=== PATIENT | female | born 1945 | race Caucasian/White ===

== ENCOUNTER 2018-05-03 16:55 | Observation (INO) | payer MEDICARE, BC ==
[2018-05-03] MEDS ORDERED: Sodium Chloride 0.9% 2.5 ML Syringe FLUSH PRN ×2 (17:19→21:52)
[2018-05-03] MEDS ORDERED: Sodium Chloride 0.9% 10 ML Syringe FLUSH PRN ×2 (17:19→21:52)
[2018-05-03] MEDS ORDERED: Sodium Chloride 0.9% 1,000 ML IV ONE (17:24)
[2018-05-03 17:48] LABS: CHLORIDE,CL 108 mmol/L (98-107); SODIUM,NA 143 mmol/L (136-145)
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
[2018-05-03] MEDS: Nitrofurantoin Monohydrate/Macrocrystalline 100 MG Cap PO SCH (21:50)
[2018-05-03] MEDS: Acetaminophen/oxyCODONE 325-10 MG Tab PO SCH (23:56)
[2018-05-03] MEDS: rOPINIRole 1 MG Tab PO SCH (23:58)
[2018-05-04] MEDS: Nitrofurantoin Monohydrate/Macrocrystalline 100 MG Cap PO SCH (08:21)
[2018-05-04] MEDS: Acetaminophen/oxyCODONE 325-10 MG Tab PO SCH ×3 (08:22→21:00)
--- NOTE | 2018-05-04 09:43 | CT ---
EXAM DATE: 05/03/18 PATIENT'S AGE: 73 Patient: SONA RASMUSSEN Facility: [place], [place] Site . Site : [id number] Study: CT Head wo cont [id number]/17/2018 6:58:20 PM Ordering Physician: Anjelica Quintero Final Report: INDICATION: multiple syncopial episodes COMPARISON: None. TECHNIQUE: Routine noncontrast axial CT images of the head. Sagittal and coronal reformatted series were also generated and reviewed. Total exam DLP 1365 mGy-cm. FINDINGS: There is diffuse atrophic change. There is no evidence of acute intracranial hemorrhage. No abnormal extra-axial fluid collection. The frye/white matter differentiation is preserved throughout. There is no herniation or hydrocephalus. The orbital contents are symmetric. The visualized pneumatized portions of the skull are clear. The skull and scalp are intact. IMPRESSION: 1. No acute intracranial findings. 2. Diffuse atrophy. Dictated by Jamison Velasquez MD @ 05/03/2018 7:11:37 PM Dictated by: Jamison Velasquez MD @ 05/03/2018 19:11:47 (Electronic Signature) Report Signed by Proxy. BELLA
[2018-05-04] MEDS ORDERED: buPROPion 150 MG Tab.ER PO SCH (10:15)
--- NOTE | 2018-05-04 10:18 | US ---
EXAMINATION: Carotid US with frye scale and duplex imaging. HISTORY: Syncope FINDINGS: Ultrasound examination of bilateral cervical carotid arteries was performed using frye scale and dupl ex imaging. Minimal scattered atheromatous changes noted within the carotid arteries. Antegrade analisa w noted within the vertebrals. These are the peak velocities in cm per second (systole), right and left respectively, by a comma: CCA (common carotid artery) - 86, 62 ICA (internal carotid artery) - 58, 97 ECA (External carotid artery) - 75, 108 ICA/CCA systolic ratio Right - 0.7 Left - 1.6 IMPRESSION: Minimal scattered atheromatous changes within the carotid arteries without elevated velocities to sug gest significant stenosis.
[2018-05-04] MEDS: Metoprolol Succinate 25 MG Tab.ER PO SCH (10:27)
[2018-05-04] MEDS: Aspirin 81 MG Tab.Chew PO SCH (10:27)
[2018-05-04] MEDS: Sertraline 100 MG Tab PO SCH (10:28)
[2018-05-04] MEDS ORDERED: Lactated Ringers 1,000 ML IV SCH (10:45)
[2018-05-04] MEDS ORDERED: cefTRIAXone 1 GM in Sodium Chloride 0.9% 50 ML IV SCH (11:00)
[2018-05-04] MEDS: Lactated Ringers 1,000 ML IV SCH (17:28)
[2018-05-04] MEDS ORDERED: Cyanocobalamin (Vitamin B12) 1,000 MCG/ML SDV SUBCUT ONE (17:40)
[2018-05-04] MEDS ORDERED: Enoxaparin 40 MG/0.4 ML Syringe SUBCUT SCH (18:00)
--- NOTE | 2018-05-04 18:01 | PCM.SN ---
- Free Text/Narrative Note: [id number]
--- NOTE | 2018-05-04 18:02 | PCM.PN ---
- General Info Date of Service: 05/04/18 Admission Dx/Problem (Free Text): dizzy spells Subjective Update: Patient feeling better today, no dizzy spells, her creatinine improved to 1.5 - Review of Systems General: Reports: No Symptoms HEENT: Reports: No Symptoms Pulmonary: Reports: No Symptoms Cardiovascular: Reports: No Symptoms Gastrointestinal: Reports: No Symptoms Genitourinary: Reports: No Symptoms Musculoskeletal: Reports: No Symptoms Skin: Reports: No Symptoms Neurological: Reports: No Symptoms Psychiatric: Reports: Anxiety - Patient Data Vitals - Most Recent: Last Vital Signs Temp 98.3 F 05/04/18 15:54 Pulse 54 L 05/04/18 15:54 Resp 18 05/04/18 15:54 BP 171/72 H 05/04/18 15:54 Pulse Ox 97 05/04/18 15:54 Orthostatic Blood Pressure [ 198/91 Standing] Orthostatic Blood Pressure [ 146/70 Sitting] Orthostatic Blood Pressure [ 145/67 Supine] Weight - Most Recent: 198 lb 6.56 oz I&O - Last 24 Hours: Intake & Output 05/04/18 05/04/18 05/04/18 06:59 14:59 22:59 Intake Total 200 50 Output Total 250 Balance -50 50 Lab Results Last 24 Hours: Laboratory Results - last 24 hr 05/03/18 05/04/18 05/04/18 Range/Units 18:40 05:35 05:35 WBC 5.35 (4.0-11.0) K/uL RBC 3.78 L (4.30-5.90) M/uL Hgb 11.6 L (12.0-16.0) g/dL Hct 36.1 (36.0-46.0) % MCV 95.5 (80.0-98.0) fL MCH 30.7 (27.0-32.0) pg MCHC 32.1 (31.0-37.0) g/dL RDW Std Deviation 46.8 (28.0-62.0) fl RDW Coeff of Josefina 13 (11.0-15.0) % Plt Count 150 (150-400) K/uL MPV 9.50 (7.40-12.00) fL Neut % (Auto) 66.5 (48.0-80.0) % Lymph % (Auto) 23.6 (16.0-40.0) % [place] % (Auto) 6.7 (0.0-15.0) % Eos % (Auto) 2.8 (0.0-7.0) % Baso % (Auto) 0.4 (0.0-1.5) % Neut # (Auto) 3.6 (1.4-5.7) K/uL Lymph # (Auto) 1.3 (0.6-2.4) K/uL [place] # (Auto) 0.4 (0.0-0.8) K/uL Eos # (Auto) 0.2 (0.0-0.7) K/uL Baso # (Auto) 0.0 (0.0-0.1) K/uL Nucleated RBC % 0.0 /100WBC Nucleated RBCs # 0 K/uL ESR (0-29) mm/hr Sodium 143 (136-145) mmol/L Potassium 4.4 (3.5-5.1) mmol/L Chloride 110 H (98-107) mmol/L Carbon Dioxide 29.3 (21.0-32.0) mmol/L BUN 27 H (7.0-18.0) mg/dL Creatinine 1.5 H (0.6-1.0) mg/dL Est Cr Clr Drug Dosing 23.28 mL/min Estimated GFR (MDRD) 33.9 ml/min Glucose 103 (74-106) mg/dL Hemoglobin A1c (4.5-6.2) % Calcium 9.0 (8.5-10.1) mg/dL Iron (50-175) ug/dL TIBC (250-450) ug/dL % Saturation (20-55) % Ferritin (8-252) ng/mL Vitamin B12 (193-986) pg/mL TSH 3rd Generation (0.36-3.74) uIU/mL Urine Color YELLOW Urine Appearance CLEAR Urine pH 7.0 (5.0-8.0) Ur Specific [place] 1.010 (1.001-1.035) Urine Protein NEGATIVE (NEGATIVE) mg/dL Urine Glucose (UA) NEGATIVE (NEGATIVE) mg/dL Urine Ketones NEGATIVE (NEGATIVE) mg/dL Urine Occult Blood NEGATIVE (NEGATIVE) Urine Nitrite NEGATIVE (NEGATIVE) Urine Bilirubin NEGATIVE (NEGATIVE) Urine Urobilinogen 1.0 (<2.0) EU/dL Ur Leukocyte Esterase TRACE (NEGATIVE) Urine RBC 0-1 (0-2/HPF) Urine WBC 3-6 (0-5/HPF) Ur Epithelial Cells OCCASIONAL (NONE-FEW) Urine Bacteria 2+ H (NEGATIVE) 05/04/18 05/04/18 05/04/18 Range/Units 11:20 11:20 11:20 WBC (4.0-11.0) K/uL RBC (4.30-5.90) M/uL Hgb (12.0-16.0) g/dL Hct (36.0-46.0) % MCV (80.0-98.0) fL MCH (27.0-32.0) pg MCHC (31.0-37.0) g/dL RDW Std Deviation (28.0-62.0) fl RDW Coeff of Josefina (11.0-15.0) % Plt Count (150-400) K/uL MPV (7.40-12.00) fL Neut % (Auto) (48.0-80.0) % Lymph % (Auto) (16.0-40.0) % [place] % (Auto) (0.0-15.0) % Eos % (Auto) (0.0-7.0) % Baso % (Auto) (0.0-1.5) % Neut # (Auto) (1.4-5.7) K/uL Lymph # (Auto) (0.6-2.4) K/uL [place] # (Auto) (0.0-0.8) K/uL Eos # (Auto) (0.0-0.7) K/uL Baso # (Auto) (0.0-0.1) K/uL Nucleated RBC % /100WBC Nucleated RBCs # K/uL ESR (0-29) mm/hr Sodium (136-145) mmol/L Potassium (3.5-5.1) mmol/L Chloride (98-107) mmol/L Carbon Dioxide (21.0-32.0) mmol/L BUN (7.0-18.0) mg/dL Creatinine (0.6-1.0) mg/dL Est Cr Clr Drug Dosing mL/min Estimated GFR (MDRD) ml/min Glucose (74-106) mg/dL Hemoglobin A1c 6.1 (4.5-6.2) % Calcium (8.5-10.1) mg/dL Iron 78 (50-175) ug/dL TIBC 207 L (250-450) ug/dL % Saturation 37.68 (20-55) % Ferritin 48 (8-252) ng/mL Vitamin B12 377 (193-986) pg/mL TSH 3rd Generation 0.94 (0.36-3.74) uIU/mL Urine Color Urine Appearance Urine pH (5.0-8.0) Ur Specific [place] (1.001-1.035) Urine Protein (NEGATIVE) mg/dL Urine Glucose (UA) (NEGATIVE) mg/dL Urine Ketones (NEGATIVE) mg/dL Urine Occult Blood (NEGATIVE) Urine Nitrite (NEGATIVE) Urine Bilirubin (NEGATIVE) Urine Urobilinogen (<2.0) EU/dL Ur Leukocyte Esterase (NEGATIVE) Urine RBC (0-2/HPF) Urine WBC (0-5/HPF) Ur Epithelial Cells (NONE-FEW) Urine Bacteria (NEGATIVE) 05/04/18 Range/Units 11:20 WBC (4.0-11.0) K/uL RBC (4.30-5.90) M/uL Hgb (12.0-16.0) g/dL Hct (36.0-46.0) % MCV (80.0-98.0) fL MCH (27.0-32.0) pg MCHC (31.0-37.0) g/dL RDW Std Deviation (28.0-62.0) fl RDW Coeff of Josefina (11.0-15.0) % Plt Count (150-400) K/uL MPV (7.40-12.00) fL Neut % (Auto) (48.0-80.0) % Lymph % (Auto) (16.0-40.0) % [place] % (Auto) (0.0-15.0) % Eos % (Auto) (0.0-7.0) % Baso % (Auto) (0.0-1.5) % Neut # (Auto) (1.4-5.7) K/uL Lymph # (Auto) (0.6-2.4) K/uL [place] # (Auto) (0.0-0.8) K/uL Eos # (Auto) (0.0-0.7) K/uL Baso # (Auto) (0.0-0.1) K/uL Nucleated RBC % /100WBC Nucleated RBCs # K/uL ESR 18 (0-29) mm/hr Sodium (136-145) mmol/L Potassium (3.5-5.1) mmol/L Chloride (98-107) mmol/L Carbon Dioxide (21.0-32.0) mmol/L BUN (7.0-18.0) mg/dL Creatinine (0.6-1.0) mg/dL Est Cr Clr Drug Dosing mL/min Estimated GFR (MDRD) ml/min Glucose (74-106) mg/dL Hemoglobin A1c (4.5-6.2) % Calcium (8.5-10.1) mg/dL Iron (50-175) ug/dL TIBC (250-450) ug/dL % Saturation (20-55) % Ferritin (8-252) ng/mL Vitamin B12 (193-986) pg/mL TSH 3rd Generation (0.36-3.74) uIU/mL Urine Color Urine Appearance Urine pH (5.0-8.0) Ur Specific [place] (1.001-1.035) Urine Protein (NEGATIVE) mg/dL Urine Glucose (UA) (NEGATIVE) mg/dL Urine Ketones (NEGATIVE) mg/dL Urine Occult Blood (NEGATIVE) Urine Nitrite (NEGATIVE) Urine Bilirubin (NEGATIVE) Urine Urobilinogen (<2.0) EU/dL Ur Leukocyte Esterase (NEGATIVE) Urine RBC (0-2/HPF) Urine WBC (0-5/HPF) Ur Epithelial Cells (NONE-FEW) Urine Bacteria (NEGATIVE) Med Orders - Current: Current Medications Aspirin (Aspirin) 81 mg PO DAILY [facility] Last Admin: 05/04/18 10:27 Dose: 81 mg Bupropion HCl (Wellbutrin Sr) 150 mg PO DAILY [facility] Enoxaparin Sodium (Lovenox) 40 mg SUBCUT Q24H [facility] Ceftriaxone Sodium 1 gm/ (Sodium Chloride) 50 mls @ 100 mls/hr IV Q24H [facility] Last Admin: 05/04/18 11:34 Dose: 100 mls/hr Lactated Ringer's (Ringers, Lactated) 1,000 mls @ 75 mls/hr IV ASDIRECTED [facility] Last Admin: 05/04/18 17:28 Dose: 75 mls/hr Metoprolol Succinate (Toprol Xl) 25 mg PO DAILY [facility] Last Admin: 05/04/18 10:27 Dose: 25 mg Oxycodone/Acetaminophen (Percocet 325-10 Mg) 1 tab PO BID [facility] Last Admin: 05/04/18 08:22 Dose: 1 tab Ramipril (Altace) 5 mg PO BID [facility] Last Admin: 05/04/18 08:21 Dose: 5 mg Ropinirole HCl (Requip) 4 mg PO BEDTIME [facility] Last Admin: 05/03/18 23:58 Dose: 4 mg Sertraline HCl (Zoloft) 200 mg PO DAILY [facility] Last Admin: 05/04/18 10:28 Dose: 200 mg Sodium Chloride (Saline Flush) 10 ml FLUSH ASDIRECTED PRN PRN Reason: Keep Vein Open Sodium Chloride (Saline Flush) 2.5 ml FLUSH ASDIRECTED PRN PRN Reason: Keep Vein Open Discontinued Medications Bupropion HCl (Wellbutrin Xl) 300 mg PO DAILY [facility] Last Admin: 05/04/18 10:27 Dose: 300 mg Cyanocobalamin (Vitamin B12) 1,000 mcg SUBCUT ONETIME ONE Stop: 05/04/18 17:41 Sodium Chloride (Normal Saline) 1,000 mls @ 999 mls/hr IV STAT ONE Stop: 05/03/18 18:24 Last Admin: 05/03/18 17:27 Dose: 999 mls/hr Lactated Ringer's (Ringers, Lactated) 1,000 mls @ 200 mls/hr IV ASDIRECTED [facility] Last Admin: 05/04/18 11:33 Dose: 200 mls/hr Nitrofurantoin Macrocrystals (Macrobid) 100 mg PO BID [facility] Stop: 05/08/18 09:01 Last Admin: 05/04/18 08:21 Dose: 100 mg - Exam General: Alert, Oriented HEENT: Pupils Equal, Pupils Reactive Neck: Supple, Trachea Midline, No JVD Lungs: Clear to Auscultation, Normal Respiratory Effort Cardiovascular: Regular Rate, Regular Rhythm, No Murmurs GI/Abdominal Exam: Normal Bowel Sounds, Soft, Non-Tender, No Organomegaly Back Exam: Normal Inspection Extremities: Normal Inspection - Problem List & Annotations (1) Near syncope SNOMED Code(s): 390895980 Code(s): R55 - SYNCOPE AND COLLAPSE Status: Acute Current Visit: Yes (2) Depression SNOMED Code(s): 78297556 Code(s): F32.9 - MAJOR DEPRESSIVE DISORDER, SINGLE EPISODE, UNSPECIFIED Status: Acute Current Visit: Yes (3) Acute kidney failure SNOMED Code(s): 99105223 Code(s): N17.9 - ACUTE KIDNEY FAILURE, UNSPECIFIED Status: Acute Current Visit: Yes (4) Hypertension SNOMED Code(s): 06213283 Code(s): I10 - ESSENTIAL (PRIMARY) HYPERTENSION Status: Acute Current Visit: Yes - Problem List Review Problem List Initiated/Reviewed/Updated: Yes - My Orders Last 24 Hours: My Active Orders 05/03/18 20:56 Telemetry Monitoring [Cardiac Monitoring] [RC] . DIRECTED 05/03/18 21:52 Saline Lock Insert [OM.PC] Routine 05/03/18 23:15 Acetaminophen/oxyCODONE [Percocet 325-10 MG] 1 tab PO BID rOPINIRole [Requip] 4 mg PO BEDTIME 05/04/18 00:30 Ramipril [Altace] 5 mg PO BID 05/04/18 08:00 Echo Comp wo Cont [US] Routine 05/04/18 10:15 Aspirin 81 mg PO DAILY Metoprolol Succinate [Toprol XL] 25 mg PO DAILY Sertraline [Zoloft] 200 mg PO DAILY 05/04/18 11:00 cefTRIAXone [Rocephin] 1 gm Sodium Chloride 0.9% [Normal Saline] 50 ml IV Q24H 05/04/18 15:45 Lactated Ringers [Ringers, Lactated] 1,000 ml IV ASDIRECTED 05/04/18 18:00 Enoxaparin [Lovenox] 40 mg SUBCUT Q24H 05/04/18 Breakfast 2 Gram Sodium Diet [DIET] 05/05/18 09:00 buPROPion [Wellbutrin SR] 150 mg PO DAILY - Assessment Assessment:: Plan For near syncope patient did not have any other episodes of lightheadedness today will decrease Bupropion to 150 mg by mouth daily as patient has decreased creatinine cleareance and this medication can give dizzy spells. Will f/up ECHo results. No arrhythmia on cardiac exercise specialist, orthostatic Vs were negative, carotid doppler negative for stenosis Acute Kidney failure /dehydration -continue patient with IV fluids , patient creatinine is currently improving and will follow-up BUN/creatinine tomorrow morning . For depression and anxiety patient will be continued on sertraline 200 mg by mouth daily and bupropion 150 mg by mouth daily For hypertension which is uncontrolled and give patient lisinopril 10 mg by mouth 1 dose as his Hr is bradycardic For DVT prophylaxis with patient lovenox 30 mg subcutaneouson
[2018-05-04] MEDS: rOPINIRole 1 MG Tab PO SCH (20:29)
[2018-05-04] MEDS ORDERED: Non-Formulary Medication 1 Each (Trazodone Hcl 100 MG) PO SCH (21:00)
[2018-05-05] MEDS: Lactated Ringers 1,000 ML IV SCH (05:46)
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
[2018-05-05] MEDS ORDERED: Enoxaparin 30 MG/0.3 ML Syringe SUBCUT SCH (08:45)
[2018-05-05] MEDS ORDERED: buPROPion 150 MG Tab.SR PO SCH (09:00)
[2018-05-05] MEDS: Sertraline 100 MG Tab PO SCH (09:23)
[2018-05-05] MEDS: Aspirin 81 MG Tab.Chew PO SCH (09:23)
[2018-05-05] MEDS: Acetaminophen/oxyCODONE 325-10 MG Tab PO SCH (09:23)
[2018-05-05 09:39] VITALS: BP 162/67
[2018-05-05] MEDS: Metoprolol Succinate 25 MG Tab.ER PO SCH (09:40)
--- NOTE | 2018-05-05 14:22 | ECHO ---
EXAM DATE: 05/03/18 PATIENT'S AGE: 73 The echocardiogram report can be seen in this patient's EMR (Electronic Medical Record) in the Reports section. The report has also been scanned into PACs. BELLA
[2018-05-05] MEDS ORDERED: traZODone 50 MG Tab PO SCH (21:00)
--- NOTE | 2018-05-05 21:35 | PCM.DCSUM1 ---
Discharge Summary - Hospital Course Diagnosis: Stroke: No - Discharge Data Discharge Disposition: Home, Self-Care 01 Condition: Fair - Discharge Diagnosis/Problem(s) (1) Near syncope SNOMED Code(s): 280203390 ICD Code: R55 - SYNCOPE AND COLLAPSE Status: Acute (2) Depression SNOMED Code(s): 35947445 ICD Code: F32.9 - MAJOR DEPRESSIVE DISORDER, SINGLE EPISODE, UNSPECIFIED Status: Acute (3) Acute kidney failure SNOMED Code(s): 71292473 ICD Code: N17.9 - ACUTE KIDNEY FAILURE, UNSPECIFIED Status: Acute (4) Hypertension SNOMED Code(s): 06475052 ICD Code: I10 - ESSENTIAL (PRIMARY) HYPERTENSION Status: Acute (5) Back pain SNOMED Code(s): 841192228 ICD Code: M54.9 - DORSALGIA, UNSPECIFIED Status: Acute (6) UTI (urinary tract infection) SNOMED Code(s): 13672541 ICD Code: N39.0 - URINARY TRACT INFECTION, SITE NOT SPECIFIED Status: Acute (7) Heart murmur SNOMED Code(s): 74066963 ICD Code: R01.1 - CARDIAC MURMUR, UNSPECIFIED Status: Acute (8) Heart murmur, aortic SNOMED Code(s): 875493547 ICD Code: I35.8 - OTHER NONRHEUMATIC AORTIC VALVE DISORDERS Status: Acute - Patient Instructions Diet: Usual Diet as Tolerated Activity: As Tolerated Driving: May Drive Today Showering/Bathing: May Shower - Discharge Plan Prescriptions/Med Rec: buPROPion [Wellbutrin SR] 150 mg PO DAILY 90 Days #90 tab.sr Cephalexin [Keflex] 500 mg PO BID #10 capsule Home Medications: Home Meds Mometasone Furoate [Elocon] 1 applic TOP DAILY 05/13/16 [History] Ramipril [Altace] 5 mg PO BID 05/13/16 [History] Sertraline [Zoloft] 200 mg PO DAILY 05/13/16 [History] Tretinoin/Emollient Base [Tretinoin 0.05% Emollient Crm] 1 applic TOP DAILY [History] oxyCODONE HCl/Acetaminophen [Percocet 10-325 mg Tablet] 1 tab PO BID 05/13/16 [ History] rOPINIRole HCl [Requip] 4 mg PO BEDTIME 05/13/16 [History] Furosemide [Lasix] 20 mg PO DAILY 09/19/16 [History] Minocycline [Minocin] 100 mg PO DAILY cap 09/28/16 [Rx] Aspirin 81 mg PO DAILY 05/03/18 [History] Metoprolol Succinate [Toprol XL] 25 mg PO DAILY 05/03/18 [History] traZODone HCl [Trazodone HCl] 100 mg PO BEDTIME 05/04/18 [History] Cephalexin [Keflex] 500 mg PO BID #10 capsule 05/05/18 [Rx] buPROPion [Wellbutrin SR] 150 mg PO DAILY 90 Days #90 tab.sr 05/05/18 [Rx] Patient Handouts: Cephalexin tablets or capsules, Bupropion sustained-release tablets (Depression/Mood Disorders), Syncope, [id number] Referrals: Michela Juarez MD [Physician] - 05/18/18 3:00 pm Lenny Del Angel MD [Physician] - 05/09/18 3:15 pm - Patient Data Vitals - Most Recent: Last Vital Signs Temp 98.9 F 05/05/18 08:00 Pulse 78 05/05/18 09:40 Resp 16 05/05/18 08:00 BP 162/67 H 05/05/18 09:40 Pulse Ox 98 05/05/18 08:00 Orthostatic Blood Pressure [ 176/101 Standing] Orthostatic Blood Pressure [ 181/69 Sitting] Orthostatic Blood Pressure [ 162/67 Supine] Weight - Most Recent: 198 lb 6.56 oz I&O - Last 24 hours: Intake & Output 05/05/18 05/05/18 05/05/18 06:59 14:59 22:59 Intake Total 1474 656 Output Total 1390 200 Balance 84 456 Lab Results - Last 24 hrs: Laboratory Results - last 24 hr 05/05/18 Range/Units 08:40 Sodium 143 (136-145) mmol/L Potassium 4.3 (3.5-5.1) mmol/L Chloride 109 H (98-107) mmol/L Carbon Dioxide 29.5 (21.0-32.0) mmol/L BUN 20 H (7.0-18.0) mg/dL Creatinine 1.1 H (0.6-1.0) mg/dL Est Cr Clr Drug Dosing 31.74 mL/min Estimated GFR (MDRD) 48.4 ml/min Glucose 108 H (74-106) mg/dL Calcium 9.3 (8.5-10.1) mg/dL MAHI Results - Last 24 hrs: Microbiology 05/03/18 18:40 Urine Culture - Final Urine, Clean Catch MIXED MOLINA >100,000 CFU/ML Med Orders - Current: Current Medications Discontinued Medications Aspirin (Aspirin) 81 mg PO DAILY [facility] Last Admin: 05/05/18 09:23 Dose: 81 mg Bupropion HCl (Wellbutrin Xl) 300 mg PO DAILY [facility] Last Admin: 05/04/18 10:27 Dose: 300 mg Bupropion HCl (Wellbutrin Sr) 150 mg PO DAILY [facility] Last Admin: 05/05/18 09:23 Dose: 150 mg Cyanocobalamin (Vitamin B12) 1,000 mcg SUBCUT ONETIME ONE Stop: 05/04/18 17:41 Last Admin: 05/04/18 18:24 Dose: 1,000 mcg Enoxaparin Sodium (Lovenox) 40 mg SUBCUT Q24H [facility] Last Admin: 05/04/18 18:24 Dose: 40 mg Enoxaparin Sodium (Lovenox) 30 mg SUBCUT Q24H [facility] Sodium Chloride (Normal Saline) 1,000 mls @ 999 mls/hr IV STAT ONE Stop: 05/03/18 18:24 Last Admin: 05/03/18 17:27 Dose: 999 mls/hr Lactated Ringer's (Ringers, Lactated) 1,000 mls @ 200 mls/hr IV ASDIRECTED [facility] Last Admin: 05/04/18 11:33 Dose: 200 mls/hr Ceftriaxone Sodium 1 gm/ (Sodium Chloride) 50 mls @ 100 mls/hr IV Q24H [facility] Last Admin: 05/04/18 11:34 Dose: 100 mls/hr Lactated Ringer's (Ringers, Lactated) 1,000 mls @ 75 mls/hr IV ASDIRECTED [facility] Last Admin: 05/05/18 05:46 Dose: 75 mls/hr Metoprolol Succinate (Toprol Xl) 25 mg PO DAILY [facility] Last Admin: 05/05/18 09:40 Dose: 25 mg Nitrofurantoin Macrocrystals (Macrobid) 100 mg PO BID [facility] Stop: 05/08/18 09:01 Last Admin: 05/04/18 08:21 Dose: 100 mg Oxycodone/Acetaminophen (Percocet 325-10 Mg) 1 tab PO BID [facility] Last Admin: 05/05/18 09:23 Dose: 1 tab Ramipril (Altace) 5 mg PO BID [facility] Last Admin: 05/05/18 09:40 Dose: 5 mg Ropinirole HCl (Requip) 4 mg PO BEDTIME [facility] Last Admin: 05/04/18 20:29 Dose: 4 mg Sertraline HCl (Zoloft) 200 mg PO DAILY [facility] Last Admin: 05/05/18 09:23 Dose: 200 mg Sodium Chloride (Saline Flush) 10 ml FLUSH ASDIRECTED PRN PRN Reason: Keep Vein Open Sodium Chloride (Saline Flush) 2.5 ml FLUSH ASDIRECTED PRN PRN Reason: Keep Vein Open Trazodone HCl (Trazodone Hcl) 100 mg PO BEDTIME [facility] Last Admin: 05/04/18 23:16 Dose: 100 mg Trazodone HCl (Trazodone) 100 mg PO BEDTIME [facility]
== END 2018-05-05 10:53 | disposition home or self-care (01) ==
LOC: MW.ED 16:55 → MW.MS 19:57 → MW.ED 20:55
PROVIDERS: ADMIT Internal Medicine; ATTEND Internal Medicine
DX: R55 Syncope and collapse (principal); I10 Essential (primary) hypertension; N17.9 Acute kidney failure, unspecified; F32.9 Major depressive disorder, single episode, unspecified; M54.9 Dorsalgia, unspecified; N39.0 Urinary tract infection, site not specified; G25.81 Restless legs syndrome; D64.9 Anemia, unspecified; Z87.891 Personal history of nicotine dependence; Z79.82 Long term (current) use of aspirin; I35.8 Other nonrheumatic aortic valve disorders; Z79.899 Other long term (current) drug therapy; Z88.5 Allergy status to narcotic agent; Z88.2 Allergy status to sulfonamides; Z91.040 Latex allergy status
CPT/HCPCS: 36415; 70450; 80048; 80053; 81001; 82607; 82728; 83036; 83550; 84443; 84484; 85025; 85610; 85652; 87086; 93005; 93306; 93880; 96360; 96361; 96365; 96372; 99285; A9270; G0378; J0696; J1650; J3420; J7040; J7050; J7120; 99284